=== PATIENT | female | born 1940 | race Hispanic/Latino ===

== ENCOUNTER 2020-11-27 08:44 | Day surgery (SDC) | payer MEDICARE ==
[~2020-11-27 08:44] MED LIST: SODIUM CHLORIDE 0.9% 1000 ML 1,000 ML IV SCH
--- NOTE | 2020-11-27 10:05 | Anesthesia Day of Surgery ---
Anesthesia Day of Surgery - Day of Surgery Patient Examined: Yes Patient H&P Reviewed: Yes Patient is NPO: Yes
--- NOTE | 2020-11-27 10:06 | Anesthesia Consultation ---
Anesthesia Consult and Med Hx Date of service: 11/27/20 - Airway Anesthetic Teeth Evaluation: Partials (Missing teeth) ROM Head & Neck: Adequate Mental/Hyoid Distance: Adequate Mallampati Class: Class II Intubation Access Assessment: Good - Pre-Operative Health Status ASA Pre-Surgery Classification: ASA2 Proposed Anesthetic Plan: MAC - Pulmonary Hx Asthma: Yes - Cardiovascular System Hx Hypertension: Yes - Gastrointestinal Hx Gastroesophageal Reflux Disease: No (IBS) - Hematic Hx Sickle Cell Disease: No
[2020-11-27] MEDS ORDERED: propofoL 200 MG/20 ML VIAL IV ONE (10:48)
[2020-11-27] MEDS ORDERED: ONDANSETRON 4 MG/2 ML INJ ONE (10:48)
[2020-11-27] MEDS ORDERED: LIDOCAINE MPF (2%) 20 MG/1 ML VIAL 5 ML ONE (10:48)
--- NOTE | 2020-11-27 11:29 | Short Stay Summary ---
Short Stay Documentation Date of service: 11/27/20 Narrative H&P: The patient presents for EGD to evaluate epigastric pain and weight loss and for colonoscopy to evaluate a history of diarrhea and weight loss. - History Past Medical History: hypertension, other (colitis in 2020, asthma) Past Surgical History: No surgical history Social history: no significant social history, no smoking, no alcohol abuse - Allergies and Medications Current Medications: Allergies No Known Allergies Allergy (Unverified 11/26/20 16:08) Home Medications Medication Instructions Recorded Confirmed Last Taken Type Aleve 11/26/20 Unknown History Flovent Hfa 11/26/20 Unknown History Fluticasone Propionate 11/26/20 Unknown History Verapamil 11/26/20 Unknown History Active Medications Sodium Chloride (Nacl 0.9% 1000 Ml) 1,000 mls @ 50 mls/hr IV DIRECT PASHA - Physical exam General appearance: no acute distress, other (thin) Integumentary: no rash, no growths, no abnormal pigmentation HEENT: Atraumatic, PERRLA, EOMI, Mucous membr. moist/pink Lungs: Clear to auscultation, Normal air movement Breasts: deferred Heart: Regular rate, Normal S1, Normal S2 Gastrointestinal: normoactive bowel sounds, no tenderness, no distended, no masses, no guarding Female Genitourinary: deferred Rectal Exam: normal exam-external/orifice, normal rectal tone, no mass Extremities: no ischemia, pulses intact, pulses symmetrical, No edema, normal temperature, normal color, Full ROM Neurological: Normal gait, Normal speech, Strength at 5/5 X4 ext, Normal tone, Sensation intact, Cranial nerves 3-12 NL - Brief post op/procedure progress note Date of procedure: 11/27/20 Findings: see dictation reports Estimated blood loss: minimal Pathology: list (1. antral biopsies for h.pylori 2.random right colon biopsies 3.sampling of colon polyps in right colon by biopsies 4. random left colon biopsies 5. sampling of left colon polyps by biopsies 6. random rectal biopsies.) Specimen disposition: to lab Condition: stable - Disposition Condition at discharge: Good Disposition: DC-01 TO HOME OR SELFCARE - Discharge Diagnoses (1) Diarrhea Status: Acute (2) Weight loss Status: Acute (3) Epigastric pain Status: Acute Short Stay Discharge Plan Activity: other (No driving for 24 hours) Weight Bearing Status: Full Weight Bearing Diet: regular Follow up with: LEAH GARCIA MD [Other] - 7 Days
--- NOTE | 2020-11-27 11:35 | Operative Report ---
Operative Report Operative Report: Date of procedure: 11/27/2020 Procedure: Esophagogastroduodenoscopy with antral biopsies for H. pylori. Preprocedure diagnosis: Epigastric pain and weight loss. Post procedure diagnosis: Mild gastritis of the antrum. Normal study otherwise. Endoscopist: Dr. Carver Anesthesia: Monitored anesthesia care per anesthesia department Medications: Propofol per anesthesia. Estimated blood loss: 0 After careful discussion of the nature and purpose of the procedure as well as details the technique risks benefits and alternatives consent was obtained. The patient was placed in the left lateral decubitus position and medicated per anesthesia. The tip of the [employer] EQ 570 video scope was passed per orum under direct vision into the esophagus and advanced into the stomach and descending duodenum. The descending duodenum the duodenal bulb and pylorus were symmetrical and normal. The scope was withdrawn into the stomach and the stomach then gently insufflated with air. The antrum revealed mild erythema. No ulcers or erosions are present. No mass lesions are present. Biopsies were taken in the antrum for H. pylori testing. The stomach was further insufflated and the scope was then retroflexed and partially withdrawn. The cardia, fundus, and body of the stomach were within normal limits and easily distensible.The scope was then withdrawn in the forward position. The esophagogastric junction was at 38 cm. The esophageal body was normal throughout. The procedure was was well tolerated and the patient was observed in recovery. Impressions: Mild gastritis. Rule out H. pylori infection. No findings overall to explain weight loss. Plan: Further evaluation with colonoscopy today as planned. Electronically signed: Rashaun Carver MD
--- NOTE | 2020-11-27 11:44 | Operative Report ---
Operative Report Operative Report: Date of procedure: 11/27/2020 Preprocedure diagnosis: History of diarrhea and significant weight loss. Histor y of an abnormal CT scan suggesting diffuse thickening of the colon in 2019. Post procedure diagnosis: #1 diverticulosis #2 postinflammatory changes with decreased vascularity and extensive pseudopolyp formation throughout the colon. Procedure: Colonoscopy to the cecum with random biopsies of the right colon and polyp sampling of the right colon. Random left colon biopsies and polyp sampling. Random rectal biopsies. Specimens were submitted in 5 separate jars in the order listed. Endoscopist: Dr. Carver Anesthesia: Monitored anesthesia care per anesthesia department Estimated blood loss: 0 Medications: Monitored anesthesia care. See separate report by anesthesia for details. After careful discussion of the nature and purpose of the procedure as well as details of the technique risks benefits and alternatives the patient gave consent. Please see recent history and physical from the office. The patient was placed in the left lateral decubitus position and medicated per anesthesia. A rectal exam was performed sphincter tone was normal there were no masses palpable. The [email or web address] scope was passed transanally and advanced under continuous direct vision without difficulty to the cecum. The colon was well prepared. The cecum was normal except for mild decreased vascularity. There was extensive diverticulosis of the left colon and mild diverticulosis of the right colon. There was altered vascularity throughout the colon with decreased vascular markings and pseudopolyps extensively throughout the colon from the cecum to the rectum. Biopsies in the first jar included random right colon biopsies. Biopsies in the second jar included sampling of suspected pseudopolyps throughout the right colon. Biopsies in the third jar included random mucosal sampling of the left colon including the distal transverse descending and sigmoid. Biopsies in the fourth jar included sampling of suspected pseudopolyps throughout the left colon. The fifth chart included biopsies at random in the rectum. The colon appeared scarified and shortened suggesting postinflammatory changes possibly secondary to quiescent inflammatory bowel disease. The distribution was less favorable for potential ischemia. The rectum had decreased vascularity and was somewhat less distensible. The scope could not be retroflexed safely in the rectum although a good coned down view was obtained. The procedure was well-tolerated overall and the patient was observed in recovery. Conclusions: Extensive postinflammatory changes throughout the entire colon were present from the rectum to the cecum. There was extensive pseudopolyp formation. Extensive diverticulosis was present in the left colon and right colon. 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 The distribution of the changes would be atypical for ischemia given entire colon involvement. Plan: Await biopsies. Office follow-up in 3 to 4 weeks. Signed electronically: Rashaun Carver M.D.
[2020-11-27 12:19] VITALS: BP 149/76
--- NOTE | 2020-11-27 15:12 | Post Anesthesia Evaluation ---
- Post Anesthesia Evaluation Patient Participated: Yes Airway Patent: Yes Stable Respiratory Function: Yes Nausea/Vomiting: No Temp > 96.8F: Yes Pain Manageable: Yes Adequeate Hydration: Yes Anesthesia Complications: No Block Receding Appropriately: Not Applicable Patient on Ventilator: No
== END 2020-11-27 12:20 | disposition home or self-care (01) ==
LOC: GIO 08:44
PROVIDERS: ATTEND Internal Medicine Gastroenterology
DX: R19.7 Diarrhea, unspecified (principal); R63.4 Abnormal weight loss; R10.13 Epigastric pain; K29.50 Unspecified chronic gastritis without bleeding; K63.89 Other specified diseases of intestine; K57.30 Diverticulosis of large intestine without perforation or abscess without bleeding; K52.89 Other specified noninfective gastroenteritis and colitis; K62.89 Other specified diseases of anus and rectum; I10 Essential (primary) hypertension; J45.909 Unspecified asthma, uncomplicated; Z79.899 Other long term (current) drug therapy
CPT/HCPCS: 43239; 45380; 88305; 88342; J2405; J2704; J7030